=== PATIENT | male | born 1985 | race Caucasian/White ===

== ENCOUNTER 2017-09-27 16:44 | Emergency (ER) | payer SELFPAY, OTHER ==
[2017-09-27] MEDS: IBUPROFEN 600 MG TAB PO (18:02)
[2017-09-27] MEDS: ONDANSETRON (ODT) 4 MG TAB ODT (18:03)
== END 2017-09-27 18:37 | disposition home or self-care (01) ==
LOC: FTE 16:44
DX: J06.9 Acute upper respiratory infection, unspecified (principal)
CPT/HCPCS: 71045; 99284-25